=== PATIENT | female | born 1970 | race Caucasian/White ===

== ENCOUNTER 2025-04-13 09:18 | Outpatient (REF) | payer MEDICARE, MEDICAID, SELFPAY ==
--- OUTSIDE RECORDS SUMMARY | 2025-04-08 09:30 | XMS_ITS | Encounter Summary ---
Author Organization [employer] [facility] Address [address] [place] [address] [address] [address] Care Team Providers Care Bronze Plater Name Role Phone Unavailable Primary Care Provider Unavailabl e Reason for Referral * Imaging (Routine) - Authorized Specialty Diagnoses / Procedures Referred By Seoku harper Referred To Contact Radiology Diagnoses Routine general medical examination at a health care facility Procedures BI Mammogram Screening Tomosynthesis Bilateral Dede Humphrey NP [address] [place] [address] Phone: tel: fax: [facility] [address] [place] [id number] Phone: tel: fax: Referral ID Status Reason Start Date Expiration Date V isits Requested Visits Authorized [id number] Authorized 04/08/2025 04/08/2026 1 1 * Consultation (Routine) - Authorized Specialty Diagnoses / Procedures Referred By Sekou harper Referred To Contact Nutrition Diagnoses Type 2 diabetes mellitus with other specified complication, unspecified whether group home insulin use (HCC) Dede Humphrey NP [address] [place] [address] Phone: tel: fax: Referral ID Status Reason Start Date Expiration Date Visits Requested Visits Authorized [id number] Authorized Consult and Treat 04/08/2025 04/08/2026 1 1 * Medications - Closed Specialty Diagnoses / Procedures Referred By Contac t Referred To Contact Diagnoses Type 2 diabetes mellitus with other specified complication, unspecified whether group home insulin use (HCC) Dede Humphrey NP [address] [place] [address] Phone: tel: fax: Referral ID Status Reason Start Date Expiration Date Visits Re quested Visits Authorized [id number] Closed 1 1 * Consultation (Routine) - Authorized Specialty Diagnoses / Procedures Referred By Contac t Referred To Contact Dental Senior Relationship Manager / Dentistry Diagnoses Routine general medical examination at a health care facility Dede Humphrey NP [address] [place] [address] Phone: tel: fax: Referral ID Status Reason Start Date Expiration Date Visits Requested Visits Authorized [id number] Authorized Consult and Treat 04/08/2025 04/08/2026 1 1 * Consultation (Routine) - Closed Specialty Diagnoses / Procedures Referred By Sekou t Referred To Contact Obstetrics and Gynecology Diagnoses Cervical cancer screening Dede Humphrey NP [address] [place], [place] Phone: tel: fax: [facility] [address] [place] [address] [address] Phone: tel: fax: Referral ID Status Reason Start Date Expiration Date V isits Requested Visits Authorized [id number] Closed Specialty Services Required 04/08/2025 04/08/2026 1 1 Reason for Visit * Reason Comments New Pantient Encounter Details Date Type Department Care Team ([facility] st Contact Info) Description 04/08/2025 9:30 AM EST Office Visit [facility] [address] [place] [address] Dede Humphrey NP [address] [place] [address] Routine general medical examination at a health care facility (Primary Dx); Type 2 diabetes mellitus with other specified complication, unspecified whether watermaster insulin use (HCC); Primary hypertension; Neuropathy; Mild intermittent asthma without complication; Other hyperlipidemia; Screening for colon cancer; Dietary counseling; Exercise counseling; Overweight; Gastroesophageal reflux disease with esophagitis without hemorrhage; Cervical cancer screening; Nicotine use; Breast screening; Immunization declined Social History Tobacco Use Types Packs/Day Years Used Date Smoking Tobacco: Every Day Cigarettes Passive Smoke Exposure: Current Smokeless Tobacco: Current Tobacco Cessation:Ready to Q uit: Not Asked; Counseling Given: Not Answered Depression Answer Date Recorded Patient Health Questionnaire-9 Score 3 04/08/2025 Patient Health Questionnaire-9 Score 3 04/08/2025 Last PHQ-9: Questionnaire Data Not on file 1 06/08/2024 Housing Stability Answer Date Recorded What is your housing situation today? I have kishore mccall 04/08/[address] you li ve. Do you have problems with any of the following? None of the above 04/08/2025 Food Insecurity Answer Date Recorded Within the past 12 months, y ou worried that your food would run out before you got money to buy more: Never True 04/08/2025 Within the past 12 months,th e food you bought just didn't last and you didn't have enough money to get more: Never True Transportation Answer Date Recorded In the past 12 months, has l ack of transportation kept you from medical appts, meetings, work or from getting things needed for daily living? No 04/08/2025 Utilities Answer Date Recorded In the past 12 months, has t he electric, gas, oil or water [employer] threatened to shut off services in your home? No 04/08/2025 Depression Answer Date Recorded Patient Health Questionnaire-2 Score 1 04/08/2025 Internet Access Answer Date Recorded Internet Access Q1 Yes 04/08/2025 Internet Access Q2 Not on file 04/08/2025 Comments Unknown Sex and Gender Information Value Date Recorded Sex Assigned at Female 03/26/2025 9:40 AM EST Legal Sex Female 11:35 AM EDT Gender Identity Female 03/26/2025 9:40 AM EST Sexual Orientation Straight 03/26/2025 9: 40 AM EST documented as of this encounter Last Filed Vital Signs Vital Sign Reading Time Taken Comments Blood Pressure 132/80 04/08/2025 10:11 AM EST Pulse 94 04/08/2025 9:08 AM EST Temperature 37.3 C (99.1 F) 04/08/2025 9:08 AM EST Respiratory Rate 18 04/08/2025 9:08 AM EST Oxygen Saturation - - Inhaled Oxygen Concentration - - Weight 68 kg (150 lb) 04/08/2025 9:08 AM EST Height 162.6 cm (5' 4 ) 04/08/2025 9:08 AM EST Body Mass Index 25.75 04/08/2025 9:08 AM EST documented in this encounter Functional Status * Over the past 2 weeks, how often have you been bothered by any of the following problems? Question Answer Date of Assessment Author Patient Health Questionnaire-2 Score 1 03/15 9:10 AM EST Diana Overton [place] * Little interest or pleasure in doing things Answer Date of Assessment Author Not at all 04/08/2025 9:10 AM EST Heydi Overton [place] * Feeling down, depressed, or hopeless Answer Date of Assessment Author Several days 04/08/2025 9:10 AM EST Heydi Overton [place] * Trouble falling or staying asleep, or sleeping too much Answer Date of Assessment Author Several days 04/08/2025 9:10 AM EST Heydi Overton [place] * Feeling tired or having little energy Answer Date of Assessment Author Several days 04/08/2025 9:10 AM EST Heydi Overton [place] * Poor appetite or overeating Answer Date of Assessment Author Not at all 04/08/2025 9:10 AM EST Heydi Overton [place] * Feeling bad about yourself - or that you are a failure or have let yourself or your family down Answer Date of Assessment Author Not at all 04/08/2025 9:10 AM EST Heydi Overton [place] * Trouble concentrating on things, such as reading the newspaper or watching television Answer Date of Assessment Author Not at all 04/08/2025 9:10 AM Heydi Garcia MA * Moving or speaking so slowly that other people could have noticed? Or the opposite - being so fidgety or restless that you have been moving around a lot more than usual. Answer Date of Assessment Author Not at all 04/08/2025 9:10 AM Heydi Garcia [place] * Thoughts that you would be better off or hurting yourself in some way Answer Date of Assessment Author Not at all 04/08/2025 9:10 AM Heydi Garcia MA * Patient Health Questionnaire-9 Score Answer Date of Assessment Author 3 04/08/2025 9:10 AM Heydi Garcia MA * Over the last 2 weeks, how often have you been bothered by any of the following problems? Question Answer Date of Assessment Author Feeling nervous, anxious, or on edge 0 03/15 9:11 AM Diana Garcia MA Not being able to stop or co ntrol worrying 1 04/08/2025 9:11 AM Diana Garcia MA Worrying too much about diff erent things 1 04/08/2025 9:11 AM Diana Garcia MA Trouble relaxing 1 04/08/2025 9:11 AM Diana Magdaleno MA Being so restless that it is hard to sit still 0 04/08/2025 9:11 AM Diana Garcia MA Becoming easily annoyed or irritable 3 03/15 9:11 AM Diana Garcia MA Feeling afraid as if somethi ng awful might happen 0 04/08/2025 9:11 AM Diana Garcia MA JAKE-7 Total Score 6 04/08/2025 9:11 AM Diana Garcia MA * How difficult have these problems made it for you to do your work, take care of things at home, or get along with other people? Answer Date of Assessment Author Not difficult at all 04/08/2025 9:10 AM Diana Garcia MA documented as of this encounter Progress Notes * Sharri Rios NP - 04/08/2025 9:30 AM EST Subjective: Cheryl Colbert is a 55 y.o. female who presents to the office for a new patient visit. Previous PCP REJI JOSE MD Interim history: Type 2 Diabetes Mellitus - History of type 2 diabetes diagnosed at age 44 - Blood glucose levels ranging from 95 to 425 mg/dL, with highest readings during recent move from [place] - Reports episodes of hypoglycemia with symptoms of shakiness and anxiety when blood sugar drops to60-70 mg/dL, managed with orange juice, glucose tablets, or sugar - Prefers to keep blood glucose in the 100s to avoid hypoglycemic symptoms - Reports episodes of hyperglycemia, including nocturnal thirst and increased urination - Admits to frequent consumption of Coca[employer]a, aware it worsens hyperglycemia - Reports inconsistent eating patterns affecting blood glucose control - Previously used a continuous glucose monitor, unable to obtain a new sensor after insurance change - Uses Lantus (27-30 units daily at 8:00 AM) and NovoLog (10 units in the morning, three times daily, sliding scale based on glucose) - Reports weight loss associated with metformin use - Reports fatigue related to diabetes management - No recent endocrinology follow-up since moving Asthma - History of asthma, triggered by weather changes and exposure to strong detergents/chemicals - Uses montelukast 10 mg daily - Uses albuterol inhaler as rescue, last used 2 months ago due to climate change - Previously used Advair (purple discus), currently without supply - No shortness of breath and chest tightness, no need for rescue inhaler, cough, or night time awakening with symptoms in the past wee - Denies recent asthma attacks or hospitalizations- within the past year Hypertension - History of high blood pressure - Takes lisinopril 20 mg - No headaches, dizziness, or shortness of breath, changes in vision. Hyperlipidemia - History of high cholesterol - Takes simvastatin 20 mg daily Gastroesophageal Reflux Disease - Intermittent symptoms of acid reflux with burning sensation in throat and stomach - Uses omeprazole as needed, reports relief with medication - Consuming acidic foods, endorsed mild reduction in caffeine intake; however, continues with tomatoes, spicy food intake Peripheral Neuropathy - History of neuropathy affecting both feet - Uses topical Bengay and neuropathy cream - Continues with gabapentin use, which is effective Osteoporosis - History of osteoporosis - Receives calcium injections to increase calcium levels Vaginal Cancer - Diagnosed with vaginal cancer 4 years ago - Underwent regular gynecologic follow-up every 6 months, all follow-ups negative - Last Pap smear 1 year ago, reported as normal Breast Mass - History of breast mass found 8 years ago - Undergoes annual mammography and sonography due to small, dense breasts Current concerns: Problem List[1] Surgical History[2] Family History[3] Hypertension- mother, paternal grandmother Diabetes- father, paternal aunts, Colon cancer- none FL[facility] SERVICE SPECIALIST cancers- vaginal cancer- 4 years - refer to FLIGHT SERVICE SPECIALIST Breast CA- none Social History Living situation: Daughter Employment/Education: Retired/high school and other training Diet/exercise: diabetic with low sodium diet/ cardio and weight training Substance use: -alcohol- social -tobacco- Cigarettes- 4 per day- 7 years -opioids - none Sexual activity: Contraception: Mental health: Patient Health Questionnaire-9 Score: 3 (04/08/2025 9:10 AM) Patient Health Questionnaire-2 Score: 1 (04/08/2025 9:10 AM) Thoughts that you would be better off or hurting yourself in some way: Not at all (04/08/2025 9:10 AM) JAKE-7 Total Score: 6 (04/08/2025 9:11 AM) Office Visit on 04/08/2025 Component Date Value Ref Range Status Glucose Blood, POC 04/08/2025 272 (A) 60 - 200 mg/dL Final QC Media Lot # 04/08/2025 [id number] Final Lot# Expiration Date 04/08/2025 [id number] Final Hemoglobin A1C 04/08/2025 8.8 (A) 4.0 - 5.7 % Final QC Media Lot # 04/08/2025 [id number] Final Lot# Expiration Date 04/08/2025 [id number] Final No LMP recorded. LMP- 44 years of age; no vaginal symptoms such as bleeding Allergies[4] Review of Systems Constitutional: Negative. Negative for activity change, diaphoresis, fatigue and fever. HENT: Negative for congestion, dental problem, ear discharge, ear pain, rhinorrhea and sinus pain. Missing molars, only lower front teeth are natural - Upper teeth replaced with box denture Eyes: Positive for visual disturbance. Negative for pain and discharge. Respiratory: Negative for cough, chest tightness and wheezing. Gastrointestinal: Negative. Negative for abdominal distention, abdominal pain, constipation, diarrhea, nausea and vomiting. Endocrine: Positive for polydipsia. Negative for cold intolerance, polyphagia and polyuria. Genitourinary: Negative for decreased urine volume, difficulty urinating, dyspareunia, menstrual problem, urgency, vaginal bleeding and vaginal pain. Musculoskeletal: Positive for back pain. Negative for arthralgias, neck pain and neck stiffness. Skin: Negative. Negative for color change and pallor. Allergic/Immunologic: Negative. Negative for environmental allergies and food allergies. Neurological: Positive for headaches. Negative for dizziness. Psychiatric/Behavioral: Negative. Negative for agitation, behavioral problems and decreased concentration. The patient is not nervous/anxious. Vitals: 04/08/25 0908 04/08/25 1011 BP: (!) 130/94 132/80 BP Location: Left arm Left arm Patient Position: Sitting Sitting BP Cuff Size: Adult Pulse: 94 Resp: 18 Temp: 99.1 ??F (37.3 ??C) TempSrc: Oral Weight: 150 lb (68 kg) Height: 5' 4 (1.626 m) Physical Exam Constitutional: General: She is awake. Appearance: Normal appearance. HENT: Head: Normocephalic and atraumatic. Right Ear: Hearing and external ear normal. No drainage or tenderness. There is impacted cerumen. Left Ear: Hearing, tympanic membrane, ear canal and external ear normal. No drainage or tenderness.There is no impacted cerumen. Tympanic membrane is not erythematous. Nose: Nose normal. Mouth/Throat: Lips: Ramer. Mouth: Mucous membranes are moist. Pharynx: Oropharynx is clear. No pharyngeal swelling or posterior oropharyngeal erythema. Tonsils: No tonsillar exudate. Eyes: General: Lids are normal. Lids are everted, no foreign bodies appreciated. No visual field deficit. Right eye: No discharge. Left eye: No discharge. Extraocular Movements: Extraocular movements intact. Right eye: Normal extraocular motion. Left eye: Normal extraocular motion. Conjunctiva/sclera: Conjunctivae normal. Neck: Thyroid: No thyroid mass or thyroid tenderness. Cardiovascular: Rate and Rhythm: Normal rate and regular rhythm. Heart sounds: Normal heart sounds, S1 normal and S2 normal. Pulmonary: Effort: No tachypnea. Breath sounds: Normal breath sounds and air entry. No decreased air movement. Abdominal: General: Abdomen is flat. Bowel sounds are normal. There is no distension. Tenderness: There is no abdominal tenderness. Hernia: No hernia is present. Genitourinary: Vagina: No vaginal discharge. Musculoskeletal: Cervical back: Full passive range of motion without pain. Right lower leg: No edema. Left lower leg: No edema. Feet: Right foot: Skin integrity: Skin integrity normal. No erythema, callus, dry skin or fissure. Toenail Condition: Right toenails are normal. Left foot: Skin integrity: Skin integrity normal. No erythema, callus, dry skin or fissure. Toenail Condition: Left toenails are normal. Comments: Able to sens Lymphadenopathy: Cervical: No cervical adenopathy. Right cervical: No superficial, deep or posterior cervical adenopathy. Left cervical: No superficial, deep or posterior cervical adenopathy. Skin: General: Skin is warm. Capillary Refill: Capillary refill takes less than 2 seconds. Coloration: Skin is not pale. Neurological: Mental Status: She is alert and oriented to person, place, and time. Cranial Nerves: No cranial nerve deficit or facial asymmetry. Gait: Gait is intact. Gait normal. Psychiatric: Attention and Perception: Attention normal. Mood and Affect: Mood normal. Speech: Speech normal. Behavior: Behavior normal. Behavior is cooperative. Assessment & Plan Routine general medical examination at a health care facility Osteoporosis: - Osteoporosis, receiving calcium supplementation via injection. - Will monitor bone health and consider further management as indicated. - Continue with weight bearing exercises, vitamin D supplementation, and calcium Type 2 diabetes mellitus with other specified complication, unspecified whether watermaster insulin use (HCC) - Type 2 diabetes mellitus with episodes of hyperglycemia and hypoglycemia - Prescribed new glucose sensor. - Continued current diabetes medications- Lantus, NovoLog, metformin, and Januvia New sliding scale initiated- - Lantus solostar u-100 insulin 100 unit/ml (3 ml) subcutaneous pen-23 units NovoLog flexpen u-100 insulin aspart 100 unit/ml (3 ml) subcutaneous- sliding scale- 150-199- 2 units 200-249- 4 units 250-300- 6 units 300- 349- 8 units 350- call - 1 week call from nurses to assess the effectiveness of the new changes. Orders: POCT Glucose POCT glycosylated hemoglobin (Hgb A1c) Primary hypertension Managed with Lisinopril Continue with antihypertensive with BP follow-up during the next visit. Neuropathy - Continue with the gabapentin therapy Mild intermittent asthma without complication - Continue with montelukast daily and albuterol inhaler as needed. - Reinforced daily use of controller inhaler. - Advair ordered Other hyperlipidemia - Hyperlipidemia managed with simvastatin. - Continue simvastatin therapy. Monitor lipid profile as indicated. Screening for colon cancer - Due for colon cancer screening. Previous stool test negative two years ago. - Ordered repeat stool-based colon cancer screening kit. Dietary counseling Exercise counseling Overweight Encouraged to incorporate 150 minutes of physical activity Decrease foods high in saturated fats Encouraged to incorporate intake of complex carbohydrates, fiber, and fruits low in glycemic index Gastroesophageal reflux disease with esophagitis without hemorrhage - GERD with intermittent symptoms, previously managed with omeprazole. - Reinforced lifestyle modifications including avoidance of acidic and spicy foods, and upright posture after meals. - Continue omeprazole as needed. Cervical cancer screening Reported history of vaginal cancer. - Will refer to FLIGHT SERVICE SPECIALIST for further care Nicotine use - Current cigarette use. - Discussed smoking history and patterns. - No desire for smoking cessation at this time Breast screening Immunization declined Declined flu, covid immunizations at this time Informed of the availability of these immunizations at the local pharmacy Routine Screening and Health Maintenance Optometry: No- referral Dentist: No Bone density testing- Endorsed she had this test completed by her previous PCP. Will await to review the health records. ASCVD risk: 55 y.o. femalehypertension hyperlipidemia smoker Lab Review: orders written for new lab studies as appropriate; see orders Routine Cancer Screening Breast CA: due for screening- found a mass in her left breast- 8 years ago- Cervical CA: last one- 1 year ago- with normal results per Cheryl Colon CA: never had one before- Lung CA: Current Medications[5] There is no immunization history on file for this patient. Follow up in about 4 weeks (around 05/06/2025), or Schedule a sooner appointment to address the vaginal symptoms, for T2DM, BP, Nurses to call in 1 week with BG findings. . [facility] INFORMATION CLERK CASHIER Attestation INFORMATION CLERK CASHIER Resident Attestation: Patient was seen and evaluated by Sharri FINNEY, in collaboration with Dede Humphrey NP who hasreviewed my assessment and plan. I, Dede Humphrey NP , have reviewed the resident's note and agree with the assessment & plan of care as documented above. Visit Conducted in: Samoan Translation by: Provided by [facility] staff member , CARLEE Soto This note was drafted using Ambient (AI) technology. The patient/patient's guardian has been informed and has consented to the use of this technology: Yes [1] There is no problem list on file for this patient. [2] No past surgical history on file. [3] No family history on file. [4] No Known Allergies [5] Current Outpatient Medications Medication Sig Dispense Refill albuterol 108 (90 Base) MCG/ACT inhaler Inhale 2 puffs every 6 (six) hours if needed for wheezing or shortness of breath. Aspirin Low Dose 81 MG EC tablet Take 1 tablet by mouth Once per day. gabapentin (Neurontin) 300 MG capsule Take 300 mg by mouth at bedtime. Januvia 100 MG tablet Take 100 mg by mouth Once per day. lisinopril 20 MG tablet Take 20 mg by mouth Once per day. metFORMIN XR (Glucophage-XR) 500 MG 24 hr tablet Take 500 mg by mouth with evening meal. montelukast (Singulair) 10 MG tablet Take 10 mg by mouth at bedtime. NovoLOG FLEXPEN 100 UNIT/ML pen Inject under the skin with breakfast, with lunch, and with evening meal. omeprazole (PriLOSEC) [address] capsule Take 40 mg by mouth before breakfast. simvastatin (Zocor) 20 MG tablet Take 20 mg by mouth at bedtime. No current facility-administered medications for this visit. documented in this encounter Plan of Treatment Upcoming Encounters Date Type Department Care Team (Late st Contact Info) Description 04/16/2025 3:00 PM EST Telemedicine [facility] [address] [place] [id number] 05/06/2025 2:00 PM EST Office Visit [facility] [address] [place] [id number] Sharri Rios NP [address] [place] [address] 06/26/2025 2:00 PM EST Nutrition [facility] DIABETES/NUTRITION [address] [place] [id number] Chio Botello, RD [address] [place] [address] Scheduled Orders Name Type Priority Associated Diagnoses Orde r Schedule CBC auto differential Lab Routine Type 2 diabetes mellitus with other specified complication, unspecified whether group home insulin use (HCC) Primary hypertension Expected: 04/08/2025 (Approximate), Expires: 04/08/2026 Comprehensive Metabolic Panel Lab Routine Type 2 diabetes mellitus with other specified complication, unspecified whether watermaster insulin use (HCC) Primary hypertension Expected: 04/08/2025 (Approximate), Expires: 04/08/2026 TSH W/Reflex to FT4 Lab Routine Type 2 diabetes mellitus with other specified complication, unspecified whether group home insulin use (HCC) Primary hypertension Expected: 04/08/2025 (Approximate), Expires: 04/08/2026 Lipid Panel, Standard Lab Routine Other hyperlipidemia Expected: 04/08/2025 (Approximate), Expires: 04/08/2026 Hepatitis A,B,C Profile Lab Routine Routine general medical examination at a health care facility Expected: 04/08/2025, Expires: 04/08/2026 Cologuard colon cancer screening Lab Routine Screening for colon cancer Ordered: 04/08/2025 BI Mammogram Screening Tomosynthesis Bilateral Imaging Routine Routine general medical examination at a health care facility Expected: 04/08/2025, Expires: 06/08/2026 Scheduled Referrals Name Type Priority Associated Diagnoses Orde r Schedule Referral to Obstetrics / Gynecology Outpatient Referral Routine Cervical cancer screening Expected: 04/08/2025 (Approximate), Expires: 04/08/2026 Referral to [facility] Dental Adult Outpatient Referral Routine Routine general medical examination at a health care facility Expected: 04/08/2025 (Approximate), Expires: 04/08/2026 Referral to Nutrition Therapy Outpatient Referral Routine Type 2 diabetes mellitus with other specified complication, unspecified whether group home insulin use (HCC) Expected: 04/08/2025 (Approximate), Expires: 04/08/2026 documented as of this encounter Goals Goal Patient Goal Type Associated Problems Recent Progress Patient-Stated? 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 Care Plan Weekly blood pressure task No Sharri Rios NP documented as of this encounter Procedures Procedure Name Priority Date/Time Associated Diagnosis Comments POCT GLYCOSYLATED HEMOGLOBIN (HGB A1C) Routine 04/08/2025 10:43 AM EST Type 2 diabetes mellitus with other specified complication, unspecified whether group home insulin use (HCC) POCT GLUCOSE Routine 04/08/2025 10:43 AM EST Type 2 diabetes mellitus with other specified complication, unspecified whether watermaster insulin use (HCC) documented in this encounter Results * (ABNORMAL) POCT glycosylated hemoglobin (Hgb A1c) (04/08/2025 10:43 AM EST) Hemoglobin A1C 8.8(A) 4.0 - 5.7 % [facility] [employer] Lot # [id number] [facility] Lot# Expiration Date ,[id number],133 [facility] Blood Capillary blood specimen / Unknown 04/08/2025 10:43 AM EST us Sharri Rios NP POINT OF CARE TEST ENTER/EDIT ORDERABLES Final Result Performing Organization Address City/[facility]/ZIP Co de Phone Number [facility] * (ABNORMAL) POCT Glucose (04/08/2025 10:43 AM EST) Glucose Blood, POC 272(A) 60 - 200 mg/dL [facility] [employer] Lot # [id number] [facility] Lot# Expiration Date [id number] [facility] Blood Capillary blood specimen / Unknown 04/08/2025 10:43 AM EST us Sharri Rios NP POINT OF CARE TEST ENTER/EDIT ORDERABLES Final Result [facility] documented in this encounter Visit Diagnoses Diagnosis Routine general medical examination at a health care facility- Primary Type 2 diabetes mellitus with other specified complication, unspecified whether watermaster insulin use (HCC) Primary hypertension Unspecified essential hypertension Neuropathy Mononeuritis of unspecified site Mild intermittent asthma without complication Other hyperlipidemia Screening for colon cancer Special screening for malignant neoplasms, colon Dietary counseling Dietary surveillance and counseling Exercise counseling Overweight Gastroesophageal reflux disease with esophagitis without hemorrhage Cervical cancer screening Screening for malignant neoplasm of the cervix Nicotine use Breast screening Breast screening, unspecified Immunization declined documented in this encounter Additional Health Concerns Active Problems Noted Date Diagnosed Date Help patients manage their type 2 diabetes 04/08 Patient has chronic kidney disease 04/08/2025 Weekly blood pressure task 04/08/2025 Assessment Noted Time PHQ-9 Depression Total Score: 3 04/08/20 25 9:10 AM EST documented as of this encounter
--- OUTSIDE RECORDS SUMMARY | 2025-04-13 11:04 | XMS_ITS | Encounter Summary ---
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 Phone Unavailable Primary Care Provider Unavailabl e Encounter Details Date Type Department Care Team (Latest Contact Info) Description 04/08/2025 Travel Social History Tobacco Use Types Packs/Day Years Used Date Smoking Tobacco: Every Day Cigarettes Passive Smoke Exposure: Current Smokeless Tobacco: Current Depression Answer Date Recorded Patient Health Questionnaire-9 [...] t he electric, gas, oil or water company threatened to shut off services in your [...] AM EST documented as of this encounter Functional Status * Over the past 2 weeks, how often have you been bothered by any of the following problems? Question Answer Date of Assessment Author Patient Health Questionnaire-2 Score 1 03/15 9:10 AM EST Diana Overton MA * Little interest or pleasure in doing things Answer Date of Assessment Author Not at all 04/08/2025 9:10 AM Heydi Garcia MA * Feeling down, depressed, or hopeless Answer Date of Assessment Author Several days 04/08/2025 9:10 AM Heydi Garcia MA * Trouble falling or staying asleep, or sleeping too much Answer Date of Assessment Author Several days 04/08/2025 9:10 AM EST Heydi Overton MA * Feeling tired or having little energy Answer Date of Assessment Author Several days 04/08/2025 9:10 AM Heydi Garcia MA * Poor appetite or overeating Answer Date of Assessment Author Not at all 04/08/2025 9:10 AM Heydi Garcia MA * Feeling bad about yourself - or that you are a failure or have let yourself or your family down Answer Date of Assessment Author Not at all 04/08/2025 9:10 AM Heydi Garcia MA * Trouble concentrating on things, such [...] Garcia MA documented as of this encounter Plan of Treatment Upcoming Encounters Date Type Department Care Team (Late st Contact Info) Description 04/16/2025 3:00 PM EST Telemedicine [facility] MED[facility]INE [address] [place] [phone] 05/06/2025 2:00 PM EST Office Visit [facility] [address] [place] [phone] Dragan Rios NP [address] [place] [address] 06/26/2025 2:00 PM EST Nutrition [facility] DIABETES/NUTRITION [address] [place], [place] [phone] [place] [address] documented as of this encounter Goals Goal Patient Goal Type Associated Problems Recent Progress Patient-Stated? Author Help patients manage their type 2 diabetes Care Plan Help patients manage their type 2 diabetes No Dragan Rios NP Patient has chronic kidney disease Care Plan Patient has chronic kidney disease No Dragan Rios NP Weekly blood pressure task Care Plan Weekly blood pressure task No Dragan Rios NP documented as of this encounter Visit Diagnoses Not on filedocumented in this encounter Additional Health Concerns Active Problems Noted Date Diagnosed Date Help patients manage their type 2 diabetes 04/08 Patient has chronic kidney disease 04/08/2025 Weekly blood pressure task 04/08/2025 Assessment Noted Time PHQ-9 Depression Total Score: 3 04/08/20 25 9:10 AM EST documented as of this encounter
--- OUTSIDE RECORDS SUMMARY | 2025-04-13 11:04 | XMS_ITS | Clinical Summary ---
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 18 g 3 025 Active Aspirin Low Dose 81 MG EC tabletIndications :Type 2 diabetes mellitus with other specified complication, unspecified whether custodial insulin use (HCC) Take 1 tablet (81 mg) by mouth Once per day. 90 tablet 1 5 9:02 AM EST 025 Active gabapentin (Neurontin) 300 MG capsuleIndication s:Neuropathy Take 1 capsule (300 mg) by mouth at bedtime. 30 capsule 5 9:02 AM EST 025 2024 Active Januvia 100 MG tabletIndications :Type 2 diabetes mellitus with other specified complication, unspecified whether joint terminal attack controller insulin use (HCC) Take 1 tablet (100 mg) by mouth Once per day. 30 tablet 3 5 9:02 AM EST 025 Active lisinopril 20 MG tabletIndications :Primary hypertension Take 1 tablet (20 mg) by mouth Once per day. 30 tablet 3 5 9:02 AM EST 025 Active metFORMIN XR (Glucophage-XR) 500 MG 24 hr tabletIndications :Type 2 diabetes mellitus with other specified complication, unspecified whether custodial insulin use (HCC) Take 1 tablet (500 mg) by mouth with evening meal. 30 tablet 3 5 9:02 AM EST Active montelukast (Singulair) 10 MG tabletIndications :Mild intermittent asthma without complication Take 1 tablet (10 mg) by mouth at bedtime. 30 tablet 3 5 9:02 AM EST Active omeprazole (PriLOSEC) [address] capsuleIndication s:Gastroesophagea l reflux disease with esophagitis without hemorrhage Take 1 capsule (40 mg) by mouth before breakfast. 30 capsule 2 5 9:02 AM EST Active simvastatin (Zocor) 20 MG tabletIndications :Other hyperlipidemia Take 1 tablet (20 mg) by mouth at bedtime. 30 tablet 3 5 9:02 AM EST Active fluticasone (Flovent) 220 MCG/ACT inhalerIndication s:Mild intermittent asthma without complication Inhale 1 puff in the morning and at bedtime. Rinse mouth with water after use to reduce aftertaste and incidence of candidiasis. Do not swallow. 12 g 11 5 9:02 AM EST 2025 Active insulin pen needle (Ultra Alex Insulin Pen [place]) 32G x 4 mm miscIndications:T ype 2 diabetes mellitus with other specified complication, unspecified whether joint terminal attack controller insulin use (HCC) Use as instructed 100 each 12 025 2025 Active insulin glargine (Lantus) 100 UNIT/ML injectionIndicati ons:Type 2 diabetes mellitus with other specified complication, unspecified whether joint terminal attack controller insulin use (HCC) Inject 23 Units under the skin at bedtime. 10 mL 12 025 2024 Active NovoLOG FLEXPEN 100 UNIT/ML penIndications:Ty pe 2 diabetes mellitus with other specified complication, unspecified whether joint terminal attack controller insulin use (HCC) Check BG three times per day: 150-199- 2 units 200-249- 4 units 250-300- 6 units 300- 349- 8 units 350- call the office 10 mL 3 Active Continuous Glucose Packager And Strapper (Dexcom G7 Packager And Strapper) deviceIndications :Type 2 diabetes mellitus with other specified complication, unspecified whether custodial insulin use (HCC) 1 each Once per day for 1 day. 1 each 2024 albuterol 108 (90 Base) MCG/ACT inhaler Inhale 2 puffs every 6 (six) hours if needed for wheezing or shortness of breath. 2024 Discontinued(R eorder (will not trigger notification to Pharmacy)) Aspirin Low Dose 81 MG EC tablet Take 1 tablet by mouth Once per day. 2024 Discontinued(R eorder (will not trigger notification to Pharmacy)) gabapentin (Neurontin) 300 MG capsule Take 300 mg by mouth at bedtime. 2024 Discontinued(R eorder (will not trigger notification to Pharmacy)) NovoLOG FLEXPEN 100 UNIT/ML pen Inject under the skin with breakfast, with lunch, and with evening meal. 2024 Discontinued(R eorder (will not trigger notification to Pharmacy)) Lantus SoloStar 100 UNIT/ML pen Inject 30 Units under the skin Once per day. 2024 Discontinued(D ose adjustment) lisinopril 20 MG tablet Take 20 mg by mouth Once per day. 2024 Discontinued(R eorder (will not trigger notification to Pharmacy)) metFORMIN XR (Glucophage-XR) 500 MG 24 hr tablet Take 500 mg by mouth with evening meal. 2024 Discontinued(R eorder (will not trigger notification to Pharmacy)) montelukast (Singulair) 10 MG tablet Take 10 mg by mouth at bedtime. 2024 Discontinued(R eorder (will not trigger notification to Pharmacy)) omeprazole (PriLOSEC) [address] capsule Take 40 mg by mouth before breakfast. 2024 Discontinued(R eorder (will not trigger notification to Pharmacy)) simvastatin (Zocor) 20 MG tablet Take 20 mg by mouth at bedtime. 2024 Discontinued(R eorder (will not trigger notification to Pharmacy)) Januvia 100 MG tablet Take 100 mg by mouth Once per day. 025 2024 Discontinued(R eorder (will not trigger notification to Pharmacy)) terconazole (Terazol 7) 0.4 % vaginal cream Insert 1 applicator into the vagina at bedtime. 025 2024 Discontinued(T herapy completed) Encounters Date Type Department Care Team Description 04/13/2025 Telephone [facility] [address] [place] [phone] Dragan Rios NP Med Refill (Pt stated pcp didn't send refills for Censor dextrom 67 and Insulin novalog 100 pt stated shew needs medications ) 04/08/2025 9:30 AM EST Office Visit [address] [phone] Dede Humphrey NP Routine general medical examination at a health care facility (Primary Dx); Type 2 diabetes mellitus with other specified complication, unspecified whether joint terminal attack controller insulin use (HCC); Primary hypertension; Neuropathy; Mild intermittent asthma without complication; Other hyperlipidemia; Screening for colon cancer; Dietary counseling; Exercise counseling; Overweight; Gastroesophageal reflux disease with esophagitis without hemorrhage; Cervical cancer screening; Nicotine use; Breast screening; Immunization declined 04/08/2025 Travel 04/02/2025 Travel 03/05/2025 Telephone [facility] [address] [place], [place] [phone] Brandon Cavazos MD telephone call from Last 3 Months Social History Tobacco Use Types Packs/Day Years [...] Orientation Straight 03/26/2025 9: 40 AM EST Last Filed Vital Signs Vital Sign Reading [...] Mass Index 25.75 04/08/2025 9:08 AM EST Plan of Treatment Upcoming Encounters Date Type Department Care Team (Late st Contact Info) Description 04/16/2025 3:00 PM EST Telemedicine [facility] MEDICINE [address] [place] [phone] 05/06/2025 2:00 PM EST Office Visit [facility] MEDICINE [address] [place] [phone] Dragan Rios NP [address] [place] [phone] 06/26/2025 2:00 PM EST Nutrition [facility] DIABETES/NUTRITION [address] [place] [address] Chio Botello, RD [address] [place] [address] Health Maintenance Due Date Last Done Comments CT Colonography 1969 Colonoscopy 1969 Colorectal Cancer Screening 1969 FIT DNA/Cologuard 1969 FIT 1969 FOBT 1969 HIV Screening 1969 Lipid Panel 1969 Sigmoidoscopy 1969 Eye Exam 1979 Hepatitis C Screening 1987 DTaP/Tdap/Td Vaccines (1 - Tdap) 01/11/1988 Diabetes: Urine Protein Screening 01/11/1988 Hepatitis B Vaccines (1 of 3 - 19+ 3-dose series) 01/11/1988 Pneumococcal Vaccine: 50+ Years (1 of 2 - PCV) 01/11/1988 Pap Smear 1990 Cervical Cancer Screening 1999 HPV/Cotest 1999 Mammogram 2009 RSV Patients and Patients Aged 60 years or older (1 - Risk 50-74 years 1-dose series) 2019 Zoster Vaccines (1 of 2) 2019 COVID-19 Vaccine (1 - season) 2025 Influenza Vaccine (#1) 2025 Diabetes: Hemoglobin A1C 07/09/2025 04/08/2025 Alcohol/Substance Use Screening 04/08/2026 04/08/2025 Depression Screening 04/08/2026 04/08/2025, 04/08/20 Diabetes: Foot Exam 04/08/2026 04/08/2025, 04/08/2025, 04/08/2025, Additional history exists Disability Screening 04/08/2026 04/08/2025 SDOH Screening 04/08/2026 04/08/2025 Tobacco Screening 04/08/2026 04/08/2025 HIB Vaccines Aged Out No longer eligi ble based on patient's age to complete this topic HPV Vaccines Aged Out No longer eligi ble based on patient's age to complete this topic Hepatitis A Vaccines Aged Out No long er eligible based on patient's age to complete this topic IPV Vaccines Aged Out No longer eligi ble based on patient's age to complete this topic Meningococcal B Vaccine Aged Out No l onger eligible based on patient's age to complete this topic Meningococcal Vaccine Aged Out No mike aleta eligible based on patient's age to complete this topic RSV under 20 months Aged Out No longe r eligible based on patient's age to complete this topic Rotavirus Vaccines Aged Out No longer eligible based on patient's age to complete this topic Goals Goal Patient Goal Type Associated Problems Recent Progress Patient-Stated? Author Help patients manage their type 2 diabetes Care Plan Help patients manage their type 2 diabetes Dragan Garsia NP Patient has chronic kidney disease Care Plan Patient has chronic kidney disease Dragan Garsia NP Weekly blood pressure task Care Plan Weekly blood pressure task Dragan Garsia NP Procedures Procedure Name Priority Date/Time Associated Diagnosis Comments POCT GLYCOSYLATED HEMOGLOBIN (HGB A1C) Routine 04/08/2025 10:43 AM EST Type 2 diabetes mellitus with other specified complication, unspecified whether custodial insulin use (HCC) POCT GLUCOSE Routine 04/08/2025 10:43 AM EST Type 2 diabetes mellitus with other specified complication, unspecified whether custodial insulin use (HCC) from Last 3 Months Results * (ABNORMAL) POCT glycosylated hemoglobin (Hgb A1c) (04/08/2025 10:43 AM EST) Hemoglobin A1C 8.8(A) 4.0 - 5.7 % [facility] [employer] Lot # [id number] [facility] Lot# Expiration Date 114, [facility] Blood Capillary blood specimen / Unknown 04/08/2025 10:43 AM EST Dragan Rios NP POINT OF CARE TEST ENTER/EDIT ORDERABLES Final Result [facility] * (ABNORMAL) POCT Glucose (04/08/2025 10:43 AM EST) Glucose Blood, POC 272(A) 60 - 200 mg/dL [facility] [employer] Lot # [id number] [facility] Lot# Expiration Date [facility] Blood Capillary blood specimen / Unknown 04/08/2025 10:43 AM EST Dragan Rios NP POINT OF CARE TEST ENTER/EDIT ORDERABLES Final Result [facility] from Last 3 Months Additional Health Concerns Active Problems Noted Date Diagnosed Date Help patients manage their type 2 diabetes 04/08 Patient has chronic kidney disease 04/08/2025 Weekly blood pressure task 04/08/2025 Insurance [employer] MEDICARE REPLACEMENT
--- OUTSIDE RECORDS SUMMARY | 2025-04-13 11:04 | XMS_ITS | Encounter Summary ---
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 Role Phone Unavailable Primary Care Provider Unavailabl e Reason for Visit * Reason Onset Date Comments Med Refill 04/13/2025 Pt stated pcp di dn't send refills for Censor dextrom 67 and Insulin novalog 100 pt stated shew needs medications Encounter Details Date Type Department Care Team ([facility] st Contact Info) Description 04/13/2025 Telephone [facility] [address] [place] [address] Dragan Rios NP [address] [place] [address] Med Refill (Pt stated pcp didn't send refills for Censor dextrom 67 and Insulin novalog 100 pt stated shew needs medications ) Social History Tobacco Use Types Packs/Day Years [...] AM EST documented as of this encounter Miscellaneous Notes * Telephone Encounter - Thu Leos - 04/13/2025 9:07 AM EST Pt stated pcp didn't send refills for Censor dextrom 67 and Insulin novalog 100 pt stated shew needs medications documented in this encounter Plan of Treatment Upcoming Encounters Date Type Department Care Team (Late st Contact Info) Description 04/16/2025 3:00 PM EST Telemedicine [facility] [address] [place] [phone] 05/06/2025 2:00 PM EST Office Visit [facility] [address] [place] [phone] Dragan Rios NP [address] [place] [address] 06/26/2025 2:00 PM EST Nutrition [facility] DIABETES/NUTRITION [address] [place] [phone] [place] [address] documented as of this encounter Goals Goal [...]
[2025-04-13 11:12] LABS: MANUAL DIFF FLAG NO
[2025-04-13 11:30] LABS: Hematocrit 41.1 % (37.0-47.0); Hemoglobin 13.9 g/dl (12.0-16.0); Imm Gran Abs Auto 0.03 X10*3/uL (0.00-0.03); Imm Gran Pct Auto 0.4 % (0.0-0.4); Lymphocytes Absolute Auto 2.2 X10*3/uL (1.2-4.9); Mean Corpuscular HGB Conc 33.8 g/dl (31.0-35.0); Mean Corpuscular Hemoglobin 30.6 pg (27.0-33.0); Mean Corpuscular Volume 90.5 fL (80.0-98.0); NRBC Abs Auto 0.000 X10*3/uL (0.0-0.012); NRBC Pct Auto 0.0 /100WBC (0.0-0.2); Platelet Count 205 X10*3/uL (160-400); Red Blood Count 4.54 X10*6/uL (4.20-5.50); White Blood Count 7.3 X10*3/uL (4.8-10.8)
[2025-04-13 12:32] LABS: Alanine Aminotransferase 12 U/L (0-31); Albumin Level 4.3 g/dL (3.5-5.0); Alkaline Phosphatase 67 U/L (39-117); Anion Gap 10 (12-20); Aspartate Amino Transferase 21 U/L (5-31); Blood Urea Nitrogen 13 mg/dL (9-16); Calcium 9.3 mg/dL (8.4-10.2); Carbon Dioxide 28 mmol/L (22-29); Chloride 106 mmol/L (96-108); Cholesterol 179 mg/dL (<200); Estimated Glomerular Filt Rate > 60; HDL Cholesterol 62 mg/dL (>40); Potassium 4.0 mmol/L (3.3-5.1); Sodium 140 mmol/L (135-145); Total Protein 6.8 g/dL (6.5-8.0); Triglycerides 66 mg/dL (<150)
[2025-04-13 12:44] LABS: HBS Num1 6.09 mIU/mL (0-7.99); HBc Num1 0.07 S/CO (0.00-0.79); HBsAGNum1 0.34 S/CO (0.00-0.99); Hepatitis A Antibody IgM 0.18 Index (0-0.79); Hepatitis B Surface Antigen Negative (Negative); ~HepC Num1 0.11 S/CO (0.00-0.79); ~Hepatitis A Antibody IgM Nonreactive (Nonreactive); ~Hepatitis B Surface Antibody NONREACTIVE (Nonreactive); ~Hepatitis C Antibody Nonreactive (Nonreactive)
== END 2025-04-13 09:19 | disposition home or self-care (01) ==
LOC: HO.HHCL 09:18
PROVIDERS: PCP Nurse Practitioner Family; Visit Provider Nurse Practitioner Family
DX: Z00.00 Encounter for general adult medical examination without abnormal findings (principal); I10 Essential (primary) hypertension; E11.69 Type 2 diabetes mellitus with other specified complication; E78.49 Other hyperlipidemia
CPT/HCPCS: 36415; 80053; 80061; 84443; 85025; 86704; 86706; 86709; 86803; 87340

== ENCOUNTER 2025-04-23 13:39 | Outpatient (REF) | payer MEDICARE, MEDICAID, SELFPAY ==
--- OUTSIDE RECORDS SUMMARY | 2025-04-23 11:15 | XMS_ITS | Encounter Summary ---
Author Organization [employer] Address [address] [facility] 7 [place] [address] Care Team Providers Care Minister Name Role Phone Dede Humphrey NP Primary Care Provider Encounter Details Date Type Department Care Team ([facility] st Contact Info) Description 04/23/2025 11:15 AM EST Office Visit [facility] MEDICINE [address] [place] [address] Carolyn Ojeda MD [address] [place] [address] Bacterial vaginosis (Primary Dx); Vulvovaginal candidiasis Social History Tobacco Use Types Packs/Day Years [...] Sign Reading Time Taken Comments Blood Pressure 134/70 04/23/2025 10:57 AM EST Pulse 98 04/23/2025 10:57 AM EST Temperature 36.2 C (97.1 F) 04/23/2025 10:57 AM EST Respiratory Rate 20 04/23/2025 10:57 AM EST Oxygen Saturation - - Inhaled Oxygen Concentration - - Weight 70.1 kg (154 lb 9.6 oz) 04/23/2025 10:57 AM EST Height 162.6 cm (5' 4 ) 04/23/2025 10:57 AM EST Body Mass Index 26.54 04/23/2025 10:57 AM EST documented in this encounter Progress Notes * Carolyn Aquino MD - 04/23/2025 11:15 AM EST Subjective Patient ID: Cheryl Colbert is a 55 y.o. female who presents for Sick visit HPI 55 y o F w PMX of DM -insulin dependent, hypertension,HLD,Asthma,GERD,Osteoporosis ,cervical cancerper pt w current normal pap smear a year ago Comes for a sick visit Reports Vulvar pruritus and discharge - Pruritus localized to the clitoral area, described as itching only externally, not inside the vagina - White, cheese-like discharge noted on the vulva as well scant amount from vagina - Mild burning sensation at the end of urination -describes mild SP discomfort as mild pressure associated - Denies burning from inside the urethra during urination - Denies increased urinary frequency or urgency - Denies malodor or blood in urine - Symptoms present for approximately one week - Reports similar episodes in the past, previously treated with topical clotrimazole prescribed by hose turner - Last gynecological evaluation one year ago, reported as normal - No recent new medications or changes in medication - History of diabetes from last labs not controlled , following already w new PCP ----- -Menopause : 44 y of age Allergies[1] Review of Systems -vulvar -clitoris itching -mild dysuria -mild SP discomfort Objective BP 134/70 (BP Location: Left arm, Patient Position: Sitting, BP Cuff Size: Adult) Pulse 98 Temp97.1 ??F (36.2 ??C) (Temporal) Resp 20 Ht 5' 4 (1.626 m) Wt 154 lb 9.6 oz (70.1 kg) BMI 26.54 kg/m?? Physical Exam There is mild irritation around clitoris with scant cheesy discharge ,rest of vulva inspection seems normal, no CMT , no obvious vaginal discharge noted , mild SP discomfort w palpation Assessment/Plan Problem List Items Addressed This Visit Vulvovaginal candidiasis Likely Vulvovaginal candidiasis from symptoms and findings on exam - Today Urinalysis: positive glucose 500 ; negative bilirubin; negative ketones; negative blood; protein 30 mg/dL; negative nitrites; negative leukocyte esterase -Chem 04/2025 wnl -sent today UA w reflex to culture and BV panel -will inform results to pt -Prescribed fluconazole (Diflucan) 150 mg single oral dose for antifungal treatment. -Recommended improved glycemic control to reduce risk of recurrent infections. Advised to follow upwith primary care physician for diabetes management. -alarm signs and symptoms discussed Other Visit Diagnoses Bacterial vaginosis - Primary Relevant Orders POCT Urinalysis (Completed) Bacterial Vaginosis Urinalysis, Complete, with Reflex to Culture [1] Allergies Allergen Reactions Benadryl [Diphenhydramine] Penicillins Tussin [Guaifenesin] Cefazolin Rash documented in this encounter Miscellaneous Notes * Assessment & Plan Note - Carolyn Aquino MD - 04/23/2025 11:32 AM ESTAssociated Problem(s): Vulvovaginal candidiasis Likely Vulvovaginal candidiasis from symptoms and findings on exam - Today Urinalysis: positive glucose 500 ; negative bilirubin; negative ketones; negative blood; protein 30 mg/dL; negative nitrites; negative leukocyte esterase -Chem 04/2025 wnl -sent today UA w reflex to culture and BV panel -will inform results to pt -Prescribed fluconazole (Diflucan) 150 mg single oral dose for antifungal treatment. -Recommended improved glycemic control to reduce risk of recurrent infections. Advised to follow upwith primary care physician for diabetes management. -alarm signs and symptoms discussed documented in this encounter Plan of Treatment Upcoming Encounters Date Type Department Care Team (Late st Contact Info) Description 05/06/2025 2:00 PM EST Office Visit [facility] MEDICINE [address] [place] [address] Dragan Rios NP [address] [place] [address] 06/26/2025 2:00 PM EST Nutrition [facility] DIABETES/NUTRITION [address] [place] [address] [place] [address] Scheduled Orders Name Type Priority Associated Diagnoses Orde r Schedule Bacterial Vaginosis Microbiology Routine Bacterial vaginosis Expected: 04/23/2025 (Approximate), Expires: 04/23/2026 documented as of this encounter Goals Goal [...] blood pressure task No Dragan Rios NP Weekly blood pressure task Care Plan Weekly blood pressure task No Genesis Walker, RN Patient has chronic kidney disease Care Plan Patient has chronic kidney disease No Denise, Genesis, RN documented as of this encounter Procedures Procedure Name Priority Date/Time Associated Diagnosis Comments POCT URINALYSIS DIPSTICK Routine 04/23/2025 11:21 AM EST Bacterial vaginosis URINALYSIS, COMPLETE, WITH REFLEX TO CULTURE Routine 04/23/2025 10:57 AM EST Bacterial vaginosis documented in this encounter Results * POCT Urinalysis (04/23/2025 11:21 AM EST) Color, UA Yellow Clarity, UA Clear Glucose, UA 3+ 500+++ Comment:500 mg Bilirubin, UA Negative Ketones, UA Negative Spec Grav, UA 1.030 Blood, UA Negative Negative, None Detected pH, UA 6.0 Protein, UA Trace Comment:30 mg Urobilinogen, UA 0.2 Leukocytes, UA Negative Negative, Rare, Trace, 1+ (17), 2+ (35), 3+ (70), Trace (15) Nitrite, UA Negative Negative, None Detected QC Media Lot # [id number] Lot# Expiration Date Urine (Urine, Random) 04/23/2025 11:21 AM EST Carolyn Aquino MD POINT OF CARE ALCIDES T ENTER/EDIT ORDERABLES Final Result * (ABNORMAL) Urinalysis, Complete, with Reflex to Culture (04/23/2025 10:57 AM EST) Color Urine Yellow [facility] Appearance Urine Clear [facility] PH 5.0 5.0 - 9.0 [facility] Glucose Urine UA >=1000(A) Negative mg/dL [facility] Urine Blood Negative Negative [facility] Specific [place] - Urine >=1.030(H) 1.005 - 1.025 [facility] Urine Protein Trace Neg-Trace mg/dL [facility] Urine Ketones Trace Negative mg/dL [facility] Nitrite Urine Negative Negative [facility] Leukocyte Esterase Urine Negative Negative [facility] RBC Urine 0-2 0 - 2 /HPF [facility] Urine WBC 0-5 0 - 5 /HPF [facility] Urine Squamous Epithelial Cell 3-5 0 - 2 /HPF [facility] Urine Bacteria None Seen None Seen [facility] Hyaline Casts, Urine 0-2 0 - 2 /LPF [facility] Urine 04/23/2025 10:5 7 AM EST 04/23/2025 1:40 PM EST Narrative [facility] - 04/23/2025 2:14 PM EST Urine, Clean Catch us Carolyn Aquino MD LAB URINE ORDERAB LES Final Result [facility] [address] [place] [phone] documented in this encounter Visit Diagnoses Diagnosis Bacterial vaginosis- Primary Unspecified vaginitis and vulvovaginitis Vulvovaginal candidiasis documented in this encounter Additional Health Concerns Active Problems Noted Date Diagnosed Date Help patients manage their type 2 diabetes 04/08 Patient has chronic kidney disease 04/08/2025 Weekly blood pressure task 04/08/2025 Weekly blood pressure task 04/14/2025 Patient has chronic kidney disease 04/14/2025 Assessment Noted Time PHQ-9 Depression Total Score: 3 04/08/20 25 9:10 AM EST documented as of this encounter Care Teams Minister Relationship Specialty Start Date End Date Dede Humphrey NP [address] [place] [phone] PCP - General Family Medicine 04/23/25 documented as of this encounter
[2025-04-23 14:04] LABS: Appearance Urine Clear; Glucose Urine UA >=1000 mg/dL (Negative); PH 5.0 (5.0-9.0); Specific Gravity - Urine >= 1.030 (1.005-1.025); UMIC TRIGGER UACC YES
[2025-04-23 15:40] LABS: Bacterial Vaginosis PCR NEGATIVE (Negative); Candida Group PCR DETECTED (Not Detect); Candida glab krusei PCR NOT DETECTED (Not Detect); Trichomonas vaginalis PCR NOT DETECTED (Not Detect)
--- OUTSIDE RECORDS SUMMARY | 2025-04-23 20:54 | XMS_ITS | Encounter Summary ---
Author Organization [employer] Address [address] [facility] [address] [place] [address] Care Team Providers Care Administrative Representative Name Role Phone Dede Humphrey NP Primary Care Provider [phone] Encounter Details Date Type Department Care Team ([facility] Contact Info) Description 04/23/2025 Results Follow-Up [facility] MEDICINE [address] [place] [address] Carolyn Ojeda MD [address] [place] [address] Bacterial Vaginosis Social History Tobacco Use Types Packs/Day Years [...] AM EST documented as of this encounter Plan of Treatment Upcoming Encounters Date Type Department Care Team (Late st Contact Info) Description 05/06/2025 2:00 PM EST Office Visit [facility] MEDICINE [address] [place] [phone] Dragan Rios NP [address] [place] [phone] 06/26/2025 2:00 PM EST Nutrition [facility] DIABETES/NUTRITION [address] [place] [phone] [place] [phone] documented as of this encounter Goals Goal [...] Weekly blood pressure task No Genesis Walker, TAMMY Patient has chronic kidney disease Care Plan Patient has chronic kidney disease Genesis Nieto, RN documented as of this encounter Visit Diagnoses [...] documented as of this encounter Care Teams Administrative Representative Relationship Specialty Start Date End Date Dede Humphrey NP [address] [place] [address] PCP - General Family Medicine 04/23/25 documented as of this encounter
--- OUTSIDE RECORDS SUMMARY | 2025-04-23 20:54 | XMS_ITS | Clinical Summary ---
Author Organization [employer] Address [address] [facility] 7[address] [place] [address] Care Team Providers Care Granite Installer Name Role Phone Dede Humphrey NP Primary Care Provider Allergies Active Allergy Reactions Criticality Noted Date Comments Diphenhydramine 04/23/2025 Cefazolin Rash Low 04/23/2025 Penicillins 04/23/2025 Guaifenesin 04/23/2025 Medications albuterol 108 (90 Base) MCG/ACT inhalerIndication s:Mild intermittent asthma without complication Inhale 2 puffs every 6 (six) hours if needed for wheezing or shortness of breath. 18 g 3 5 2:43 PM EST 025 Active Aspirin Low Dose 81 MG EC tabletIndications :Type 2 diabetes mellitus with other specified complication, unspecified whether group home insulin use (HCC) Take 1 tablet (81 mg) by mouth Once per day. 90 tablet 1 5 9:02 AM EST 025 Active gabapentin (Neurontin) 300 MG capsuleIndication s:Neuropathy Take 1 capsule (300 mg) by mouth at bedtime. 30 capsule 5 9:02 AM EST 025 2024 Active Januvia 100 MG tabletIndications :Type 2 diabetes mellitus with other specified complication, unspecified whether intermediate project manager insulin use (HCC) Take 1 tablet (100 mg) by mouth Once per day. 30 tablet 3 5 9:02 AM EST 025 Active metFORMIN XR (Glucophage-XR) 500 MG 24 hr tabletIndications :Type 2 diabetes mellitus with other specified complication, unspecified whether intermediate project manager insulin use (HCC) Take 1 tablet (500 [...] insulin pen needle (Ultra Alex Insulin Pen [place]) 32G x 4 mm miscIndications:T ype 2 diabetes mellitus with other specified complication, unspecified whether group home insulin use (HCC) Use as instructed 100 each 12 5 2:43 PM EST 2025 Active insulin glargine (Lantus) 100 UNIT/ML injectionIndicati ons:Type 2 diabetes mellitus with other specified complication, unspecified whether group home insulin use (HCC) Inject 23 Units under the skin at bedtime. 10 mL 12 025 2024 Active NovoLOG FLEXPEN 100 UNIT/ML penIndications:Ty pe 2 diabetes mellitus with other specified complication, unspecified whether group home insulin use (HCC) Check BG three times per day: 150-199- 2 units 200-249- 4 units 250-300- 6 units 300- 349- 8 units 350- call the office 10 mL 3 5 2:43 PM EST Active lisinopril 40 MG tabletIndications :Primary hypertension Take 1 tablet (40 mg) by mouth Once per day. 90 tablet 5 10:09 AM EST Active fluconazole (Diflucan) 150 MG tablet Take 1 tablet (150 mg) by mouth Once per day for 1 day. 1 tablet 2024 Active Continuous Glucose Drapery Maker (Dexcom G7 Drapery Maker) deviceIndications :Type 2 diabetes mellitus with other specified complication, unspecified whether group home insulin use (HCC) 1 each Once per [...] 100 mg by mouth Once per day. 2024 Discontinued(R eorder (will not trigger notification to Pharmacy)) terconazole (Terazol 7) 0.4 % vaginal cream Insert 1 applicator into the vagina at bedtime. 2024 Discontinued(T herapy completed) lisinopril 20 MG tabletIndications :Primary hypertension Take 1 tablet (20 mg) by mouth Once per day. 30 tablet 3 9:02 AM EST 2024 Discontinued(D ose adjustment) NovoLOG FLEXPEN 100 UNIT/ML penIndications:Ty pe 2 diabetes mellitus with other specified complication, unspecified whether intermediate project manager insulin use (HCC) Check BG three times per day: 150-199- 2 units 200-249- 4 units 250-300- 6 units 300- 349- 8 units 350- call the office 10 mL 3 2024 Discontinued(R eorder (will not trigger notification to Pharmacy)) lisinopril 40 MG tabletIndications :Primary hypertension Take 1 tablet (40 mg) by mouth Once per day. 30 tablet 11 2024 Discontinued(T herapy completed) Active Problems Problem Noted Date Diagnosed Date Vulvovaginal candidiasis 04/23/2025 Assessment & Plan (04/23/2025 11:32 AM EST): Likely Vulvovaginal candidiasis from symptoms and findings [...] risk of recurrent infections. Advised to follow up with primary care physician for diabetes management. -alarm signs and symptoms discussed Encounters Date Type Department Care Team Description 04/23/2025 11:15 AM EST Office Visit [address] [address] Carolyn Ojeda MD Bacterial vaginosis (Primary Dx); Vulvovaginal candidiasis 04/23/2025 Results Follow-Up [address] [address] Carolyn Ojeda MD Bacterial Vaginosis 04/23/2025 Orders Only [address] [address] Carolyn Ojeda MD 04/23/2025 Travel 04/22/2025 Telephone [facility] [address] [place] [phone] Dede Humphrey NP 04/20/[address] [address] Dragan Rios NP Telephone Call 04/16/2025 3:00 PM EST Telemedicine [address] [address] Genesis Walker RN Primary hypertension 04/16/2025 Travel 04/15/[address] [address] Dragan Rios NP Blood Glucose Check 04/13/[address] [address] Dragan Rios NP Type 2 diabetes mellitus with other specified complication, unspecified whether group home insulin use (HCC) 04/08/2025 9:30 AM EST Office Visit [address] [address] Dede Humphrey NP Routine general medical examination at a health care facility (Primary Dx); Type 2 diabetes mellitus with other specified complication, unspecified whether intermediate project manager insulin use (HCC); Primary hypertension; Neuropathy; Mild intermittent asthma without complication; Other hyperlipidemia; Screening for colon cancer; Dietary counseling; Exercise counseling; Overweight; Gastroesophageal reflux disease with esophagitis without hemorrhage; Cervical cancer screening; Nicotine use; Breast screening; Immunization declined 04/08/2025 Travel 04/02/2025 Travel 03/05/[address] [facility] [address] [place] [phone] Brandon Cavazos MD telephone call from Last [...] Mass Index 26.54 04/23/2025 10:57 AM EST Plan of Treatment Upcoming Encounters Date Type Department Care Team (Late st Contact Info) Description 05/06/2025 2:00 PM EST Office Visit [facility] [address] [place] [phone] Dragan Rios NP [address] [place] [address] 06/26/2025 2:[address] [facility] DI[facility]ET[facility]/NUTRITION [address] [place] [phone] [place] [address] Health Maintenance Due Date Last Done Comments CT Colonography 1969 Colonoscopy 1969 Colorectal Cancer Screening 1969 FIT DNA/Cologuard 1969 FIT 1969 FOBT 1969 HIV Screening 1969 Sigmoidoscopy 1969 Eye Exam 1979 DTaP/Tdap/Td Vaccines (1 - Tdap) 01/11/1988 Diabetes: [...] of 2) 2019 COVID-19 Vaccine (1 - 2024- season) 2025 Influenza Vaccine (#1) 2025 Diabetes: Hemoglobin A1C 07/09/2025 04/08/2025 Alcohol/Substance Use Screening 04/08/2026 04/08/2025 Depression Screening 04/08/2026 04/08/2025, 04/08/20 Diabetes: Foot Exam 04/08/2026 04/08/2025, 04/08/2025, 04/08/2025, Additional history exists Disability Screening 04/08/2026 04/08/2025 SDOH Screening 04/08/2026 04/08/2025 Lipid Panel 04/13/2026 04/13/2025 Tobacco Screening 04/23/2026 04/23/2025 Hepatitis C Screening Completed 04/13/2025 HIB Vaccines Aged Out No longer eligi [...] Plan Weekly blood pressure task No Dragan iRos NP Weekly blood pressure task Care Plan Weekly blood pressure task No Genesis Walker TAMMY Patient has chronic kidney disease Care Plan Patient has chronic kidney disease No Genesis Walker, lockstitch zipper setter Procedure Name Priority Date/Time Associated Diagnosis Comments BACTERIAL VAGINOSIS PANEL Routine 04/23/2025 11:25 AM EST POCT URINALYSIS DIPSTICK Routine 04/23/2025 11:21 AM EST Bacterial vaginosis URINALYSIS, COMPLETE, WITH REFLEX TO CULTURE Routine 04/23/2025 10:57 AM EST Bacterial vaginosis HEPATITIS PANEL, GENERAL Routine 04/13/2025 9:31 AM EST Routine general medical examination at a [facility] facility LIPID PANEL, STANDARD Routine 04/13/2025 9:31 AM EST Other hyperlipidemia TSH W/REFLEX TO FT4 Routine 04/13/2025 9 :31 AM EST Type 2 diabetes mellitus with other specified complication, unspecified whether group home insulin use (HCC) Primary hypertension COMPREHENSIVE METABOLIC PANEL Routine 04/13/2025 9:31 AM EST Type 2 diabetes mellitus with other specified complication, unspecified whether intermediate project manager insulin use (HCC) Primary hypertension CBC WITH AUTO DIFFERENTIAL Routine 04/13/2025 9:31 AM EST Type 2 diabetes mellitus with other specified complication, unspecified whether group home insulin use (HCC) Primary hypertension POCT GLYCOSYLATED HEMOGLOBIN (HGB A1C) Routine 04/08/2025 10:43 AM EST Type 2 diabetes mellitus with other specified complication, unspecified whether intermediate project manager insulin use (HCC) POCT GLUCOSE Routine 04/08/2025 10:43 AM EST Type 2 diabetes mellitus with other specified complication, unspecified whether intermediate project manager insulin use (HCC) from Last 3 Months Results * (ABNORMAL) Bacterial Vaginosis (04/23/2025 11:25 AM EST) TRICHOMONAS VAGINALIS DETECTION BY PCR NOT DETECTED Not Detect [facility] BACTERIAL VAGINOSIS DETECTION BY PCR NEGATIVE Negative [facility] Comment:The BV organism targ ets of the Xpert Xpress MVP test can becommensal in women; Xpert Xpress MVP positive results forbacterial vaginosis should be considered in conjunction withother clinical and patient information to determine thedisease status. Organisms that are not detected by the XpertXpress MVP test have also been reported to be associatedwith BV and aerobic vaginitis.The Xpert Xpress MVP test performance has not been evaluatedin patients under the age of 14. SELENA GROUP DETECTION BY PCR DETECTED(A) Not Detect [facility] Selena glab krusei PCR NOT DETECTED Not Detect [facility] 04/23/2025 11:2 5 AM EST 04/23/2025 1:52 PM EST Carolyn Aquino MD LAB MICROBIOLOGY - GENERAL ORDERABLES Final Result [facility] [address] [place] [phone] * POCT Urinalysis (04/23/2025 11:21 AM EST) [...] Media Lot # [id number] Lot# Expiration Date , Urine (Urine, Random) 04/23/2025 11:21 AM EST Carolyn Aquino MD POINT OF CARE ALCIDES T ENTER/EDIT ORDERABLES Final Result * (ABNORMAL) Urinalysis, Complete, with Reflex to Culture (04/23/2025 10:57 AM EST) Color Urine Yellow [facility] Appearance Urine Clear [facility] PH 5.0 5.0 - 9.0 [facility] Glucose Urine UA >=1000(A) Negative mg/dL [facility] Urine Blood Negative Negative [facility] Specific [place] - Urine >=1.030(H) 1.005 - 1.025 [facility] Urine Protein Trace Neg-Trace mg/dL [facility] Urine Ketones Trace Negative mg/dL [facility] Nitrite Urine Negative Negative [facility] Leukocyte Esterase Urine Negative Negative [facility] RBC Urine 0-2 0 - 2 /HPF [facility] Urine WBC 0-5 0 - 5 /HPF [facility] Urine Squamous Epithelial Cell 3-5 0 - 2 /HPF [facility] Urine Bacteria None Seen None Seen [facility] Hyaline Casts, Urine 0-2 0 - 2 /LPF [facility] Urine 04/23/2025 10:5 7 AM EST 04/23/2025 1:40 PM EST Narrative [facility] - 04/23/2025 2:14 PM EST Urine, Clean Catch us Carolyn Aquino MD LAB URINE ORDERAB LES Final Result Performing Organization Address City/[facility] Co de Phone Number [facility] [address] [place] [phone] * TSH W/Reflex to FT4 (04/13/2025 9:31 AM EST) TSH reflex Free T4 0.92 0.32 - 4.0 uIU/mL [facility] Blood Venous blood specimen / Unknown 04/13/2025 9:31 AM EST 04/13/2025 11:05 AM EST us Dede Humphrey NP LAB BLOOD ORDERABLES Final Resul t [facility] [address] [place] [address] [phone] * Hepatitis A,B,C Profile (04/13/2025 9:31 AM EST) Pathologist [facility] Hepatitis A IgM Nonreactive Nonreactive [facility] Comment:IgM antibodies to OMALLEY V not detected; does not exclude earlyacute or recovered HAV infection. ~Hepatitis B Surface Antibody NONREACTIVE Nonreactive [facility] Comment:Nonreactive: < 8.00 mIU/mL Hepatitis B Core Antibody Nonreactive Nonreactive [facility] Hepatitis C Antibody Nonreactive Nonreactive [facility] Comment:Antibodies to HCV no t detected; does not exclude early acuteHCV infection. Hepatitis B Surface Ag Negative Negative [facility] Blood Venous blood specimen / Unknown 04/13/2025 9:31 AM EST 04/13/2025 11:05 AM EST Dede Humphrey NP LAB BLOOD ORDERABLES Final Resul t Performing Organization Address [facility] de Phone Number [facility] [address] [place] [address] [phone] * (ABNORMAL) CBC auto differential (04/13/2025 9:31 AM EST) [facility] White Blood Count 7.3 4.8 - 10.8 X10*3/uL [facility] Red Blood Count 4.54 4.20 - 5.50 X10*6/uL [facility] Hemoglobin 13.9 12.0 - 16.0 g/dl [facility] Hematocrit 41.1 37.0 - 47.0 % [facility] Mean Corpuscular Volume 90.5 80.0 - 98.0 fL [facility] Mean Corpuscular Hemoglobin 30.6 27.0 - 33.0 pg [facility] Mean Corpuscular HGB Conc 33.8 31.0 - 35.0 g/dl [facility] Red Cell Distribution Width 11.7 11.0 - 16.0 % [facility] Platelet Count 205 160 - 400 X10*3/uL [facility] Mean Platelet Volume 13.0(H) 9.4 - 12.3 fL [facility] Neutrophils Percent Auto 60.8 45 - 73 % [facility] Imm Gran Pct Auto 0.4 0.0 - 0.4 % [facility] Lymphocytes Percent Auto 29.6 20 - 40 % [facility] Monocytes Percent Auto 7.0 2 - 11 % [facility] Eosinophils Percent Auto 1.5 0 - 4 % [facility] Basophils Percent Auto 0.7 0 - 2 % [facility] NRBC Pct Auto 0.0 0.0 - 0.2 /100WBC [facility] Neutrophils Absolute Auto 4.5 2.0 - 8.3 x10*3/uL [facility] Imm Gran Abs Auto 0.03 0.00 - 0.03 X10*3/uL [facility] Lymphocytes Absolute Auto 2.2 1.2 - 4.9 X10*3/uL [facility] Monocytes Absolute Auto 0.5 0.1 - 1.2 X10*3/uL [facility] Eosinophils Absolute Auto 0.1 0.0 - 0.4 X10*3/uL [facility] Basophils Absolute Auto 0.1 0.0 - 0.2 X10*3/uL [facility] NRBC Abs Auto 0.000 0.0 - 0.012 X10*3/uL [facility] Blood Venous blood specimen / Unknown 04/13/2025 9:31 AM EST 04/13/2025 11:05 AM EST us Dede Humphrey LENS COATING TECHNICIAN LAB BLOOD ORDERABLES Final Resul t [facility] [address] [place] [phone] [phone] * (ABNORMAL) Lipid Panel, Standard (04/13/2025 9:31 AM EST) Triglycerides 66 <150 mg/dL [facility] Comment:Desirable Triglyceri de: less than 150 mg/dLBorderline High Triglyceride 150-199 mg/dLHigh Triglyceride: 200-499 mg/dLVery High Triglyceride: greater than or equal to 5OO mg/dL Cholesterol 179 <200 mg/dL [facility] Comment:Desirable Cholestero l: less than 200 mg/dLBorderline High Cholesterol: 200-239 mg/dLHigh Cholesterol: greater than 239 mg/dL LDL Cholesterol Calculated 104(H) <100 mg/dL [facility] Comment:Desirable LDL: less than 100 mg/dLNear Optimal/Above Optimal LDL: 110- 129 mg/dLBorderline High LDL: 130-159 mg/dLHigh LDL: 160-189 mg/dLVery High LDL: greater than or equal to 190 mg/dL HDL Cholesterol 62 >40 mg/dL [facility] Comment:Desirable HDL: great er than 40 mg/dL Note: This HDL assay may give artificially low results in patients with liver disease. Blood Venous blood specimen / Unknown 04/13/2025 9:31 AM EST 04/13/2025 11:05 AM EST us Dede Humphrey LENS COATING TECHNICIAN LAB BLOOD ORDERABLES Final Resul t [facility] [address] [place] [phone] * (ABNORMAL) Comprehensive Metabolic Panel (04/13/2025 9:31 AM EST) Sodium 140 135 - 145 mmol/L [facility] Potassium 4.0 3.3 - 5.1 mmol/L [facility] Comment:Slight Hemolysis.Int erpret result with caution. Chloride 106 96 - 108 mmol/L [facility] Carbon Dioxide 28 22 - 29 mmol/L [facility] Anion Gap 10(L) 12 - 20 [facility] Urea Nitrogen (BUN) 13 9 - 16 mg/dL [facility] Creatinine, Serum 0.51 0.5 - 1.4 mg/dL [facility] Estimated Glomerular Filt Rate >60 [facility] Comment:Chronic Kidney Disea se: Estimated GFR < 60 mL/min/1.05s4Xzhrsp Kidney Disease: Estimated GFR < 15 mL/min/1.73m2 Glucose 149(H) 60 - 115 mg/dL [facility] Calcium 9.3 8.4 - 10.2 mg/dL [facility] Bilirubin, Total 0.5 0.0 - 1.0 mg/dL [facility] Aspartate Amino Transferase 21 5 - 31 U/L [facility] Comment:Slight Hemolysis.Int erpret result with caution. Alanine Aminotransferase 12 0 - 31 U/L [facility] Total Protein 6.8 6.5 - 8.0 g/dL [facility] Albumin Level 4.3 3.5 - 5.0 g/dL [facility] Alkaline Phosphatase 67 39 - 117 U/L [facility] Blood Venous blood specimen / Unknown 04/13/2025 9:31 AM EST 04/13/2025 11:05 AM EST us Dede Humphrey LENS COATING TECHNICIAN LAB BLOOD ORDERABLES Final Resul t Performing Organization Address City/[facility]/ZIP Co de Phone Number [facility] [address] [place] [address] [phone] * (ABNORMAL) POCT glycosylated hemoglobin (Hgb A1c) (04/08/2025 10:43 AM EST) Hemoglobin A1C 8.8(A) 4.0 - 5.7 % [facility] Media Lot # [id number] [facility] Lot# Expiration Date [id number] [facility] Blood Capillary blood specimen / Unknown 04/08/2025 10:43 AM EST us Dragan Rios LENS COATING TECHNICIAN POINT OF CARE TEST ENTER/EDIT ORDERABLES Final Result [facility] * (ABNORMAL) POCT Glucose (04/08/2025 10:43 AM EST) Glucose Blood, POC 272(A) 60 - 200 mg/dL [facility] Media Lot # [id number] [facility] Lot# Expiration Date ,026 [facility] Blood Capillary blood specimen / Unknown 04/08/2025 10:43 AM EST Dragan Rios NP POINT OF CARE TEST ENTER/EDIT ORDERABLES Final Result [facility] from Last 3 Months Additional Health Concerns Active Problems Noted Date Diagnosed Date Help patients manage their type 2 diabetes 04/08 Patient has chronic kidney disease 04/08/2025 Weekly blood pressure task 04/08/2025 Weekly blood pressure task 04/14/2025 Patient has chronic kidney disease 04/14/2025 Insurance [employer] MEDICARE REPLACEMENT Care Teams Granite Installer Relationship Specialty Start Date End Date Dede Humphrey NP [address] [place] [phone] PCP - General Family Medicine 04/23/25
--- OUTSIDE RECORDS SUMMARY | 2025-04-23 20:54 | XMS_ITS | Encounter Summary ---
Author Organization [employer] Address [address] [facility] 7 [place] [address] Care Team Providers Care Progressive Assembler And Fitter Name Role Phone Dede Humphrey NP Primary Care Provider [phone] Encounter Details Date Type Department Care Team ([facility] st Contact Info) Description 04/23/2025 Orders Only [facility] [address] [place] [address] Carolyn Ojeda MD [address] [place] [address] Social History Tobacco Use Types Packs/Day Years [...] Description 05/06/2025 2:00 PM EST Office Visit [facility] [address] [place] [phone] Dragan Rios NP [address] [place] [address] 06/26/2025 2:00 PM EST Nutrition [facility] DIABETES/NUTRITION [address] [place] [phone] [place] [address] documented as of this encounter Goals Goal [...] has chronic kidney disease No Genesis Walker, TAMMY documented as of this encounter Procedures Procedure Name Priority Date/Time Associated Diagnosis Comments BACTERIAL VAGINOSIS PANEL Routine 04/23/2025 11:25 AM EST documented in this encounter Results * (ABNORMAL) Bacterial Vaginosis (04/23/2025 11:25 AM EST) TRICHOMONAS VAGINALIS DETECTION BY PCR NOT DETECTED Not Detect [facility] BACTERIAL VAGINOSIS DETECTION BY PCR NEGATIVE Negative [facility] Comment:The BV organism targ ets of [...] GROUP DETECTION BY PCR DETECTED(A) Not Detect [facility] Selena glab krusei PCR NOT DETECTED Not Detect [facility] 04/23/2025 11:2 5 AM EST 04/23/2025 1:52 PM EST Carolyn Aquino MD LAB MICROBIOLOGY - GENERAL ORDERABLES Final Result [facility] [address] [place] [address] [phone] documented in this encounter Visit Diagnoses Not on filedocumented in this encounter Additional Health Concerns Active Problems Noted Date Diagnosed Date Help patients manage their type 2 diabetes 04/08 Patient has chronic kidney disease 04/08/2025 Weekly blood pressure task 04/08/2025 Weekly blood pressure task 04/14/2025 Patient has chronic kidney disease 04/14/2025 Assessment Noted Time PHQ-9 Depression Total Score: 3 04/08/20 9:10 AM EST documented as of this encounter Care Teams Progressive Assembler And Fitter Relationship Specialty Start Date End Date Dede Humphrey NP [address] [place] [phone] PCP - General Family Medicine 04/23/25 documented as of this encounter
--- OUTSIDE RECORDS SUMMARY | 2025-04-23 20:54 | XMS_ITS | Encounter Summary ---
Author Organization [employer] Address [address] [facility] 7t [place] [address] Care Team Providers Care Wardrobe Coordinator Name Role Phone Unavailable Primary Care Provider Unavailabl e Encounter Details Date Type Department Care Team ([facility] Contact Info) Description 04/22/2025 Telephone [employer] [facility] [address] [place] [address] Dede Humphrey NP [address] [place] [address] Social History Tobacco Use Types Packs/Day Years [...] encounter Miscellaneous Notes * Telephone Encounter - Esperanza Dennis - 04/22/2025 3:11 PM EST [facility] [place] Mammogram order to be update to ICD 10 code Z12.31. Please advise! documented in this encounter Plan of Treatment Upcoming Encounters Date Type Department Care Team (Late st Contact Info) Description 05/06/2025 2:00 PM EST Office Visit [facility] [address] [place] [phone] Dragan Rios NP [address] [place] [phone] 06/26/2025 2:00 PM EST Nutrition [facility] DIABETES/NUTRITION [address] [place] [phone] [place] [address] documented as of this encounter Goals Goal [...] Weekly blood pressure task No Genesis Walker RN Patient has chronic kidney disease Care Plan Patient has chronic kidney disease Genesis Nieto RN documented as of this encounter Visit [...]
--- OUTSIDE RECORDS SUMMARY | 2025-04-23 20:54 | XMS_ITS | Encounter Summary ---
Author Organization [employer] Address [address] [facility] 7 [place] [address] Care Team Providers Care Event Manager Name Role Phone Dede Humphrey NP Primary Care Provider [phone] Reason for Visit * Reason Onset Date Comments Telephone Call 04/20/2025 Encounter Details Date Type Department Care Team ([facility] st Contact Info) Description 04/20/[address] [facility] MEDICINE [address] [place] [address] Dragan Riso NP [address] [place] [address] Telephone Call Social History Tobacco Use Types Packs/Day Years [...] encounter Miscellaneous Notes * Telephone Encounter - Munira Yung RN - 04/22/2025 3:16 PM EST Tc to pt via [employer] ID: [id number] to let them know per covering provider Hi I sent a message to inform Cheryl of the increase in her Lisinopril. I am uncertain why she is on Propanolol, I am waiting for records from previous PCP. We can discuss further regarding the beta beau. Thanks . Pt reports they're still taking the 20 mg lisinopril and is on 10 mg of Propanolol. Pt reports they do not want to start the 40 mg due to concerns it may lower their blood pressure too low. Instructional Writer discussed with pt their readings from their last blood pressure check are not within the goal limit and the reason their provider increased the dose to prevent their readings from becoming more elevated. Wrietr educate DTaP on signs and symptoms of hypotension. Pt advised at their upcoming visit the provider will discuss with pt about propanolol but are still waiting on documents from their past PCP. Pt avoidsalty, process foods, smoking and drinking alcohol. Pt advised to exercise and focus on following alow sodium diet. Pt reports they will supervisor opening and picking their medication then start tomorrow. Pt also reportsthey have been experiencing pain and burning sensation for the past two weeks. Pt is requesting a urine test. Pt advised to come into [facility] today to be evaluated first before it can be ordered. Pt thendeclined then underwriter offered a sick on site tomorrow with Dr. Uvaldo Aquino at the [place] team, whichpt agreed to. Message sent to [facility] provide ion an FYI. * Telephone Encounter - Mallika Miles - 04/20/2025 10:08 AM EST Patient was seen as New Patient on 04/08/25. Patient walked in stating she did not receive a call to be informed that her medication Lisinopril would be switched from 20mg to 40mg. Also the Propanolol 10mg was discontinued also was not informed. Patient is requesting to speak with team nurse to discuss. Call back number is [phone]. documented in this encounter Plan of Treatment Upcoming Encounters Date Type Department Care Team (Late st Contact Info) Description 05/06/2025 2:00 PM EST Office Visit [facility] MEDICINE [address] [place] [phone] Dragan Rios NP [address] [place] [phone] 06/26/2025 2:00 PM EST Nutrition [facility] DIABETES/NUTRITION [address] [place] [phone] Chio Botello, RD [address] [place] [address] documented as of this encounter Goals Goal [...] has chronic kidney disease No Genesis Walker, RN documented as of this encounter Visit [...] documented as of this encounter Care Teams Event Manager Relationship Specialty Start Date End Date Dede Humphrey NP [address] [place] [phone] PCP - General Family Medicine 04/23/25 documented as of this encounter
--- OUTSIDE RECORDS SUMMARY | 2025-04-23 20:54 | XMS_ITS | Encounter Summary ---
Author Organization [employer] Address [address] [facility] 7 [place] [address] Care Team Providers Care Hand Weaver Name Role Phone Unavailable Primary Care Provider Unavailabl e Reason for Visit * Reason Onset Date Comments Blood Glucose Check 04/15/2025 Encounter Details Date Type Department Care Team ([facility] st Contact Info) Description 04/15/2025 Telephone [facility] MEDICINE [address] [place] [address] Dragan Rios NP [address] [place] [address] Blood Glucose Check Social History Tobacco Use Types Packs/Day Years [...] Encounter - Munira Yung RN - 04/22/2025 4:05 PM EST Incoming message from covering provider Fabricio Elias, The BG in the 300 range, are these fasting? Kindly clarify with Cheryl and Also kindly ask her if she is snacking at night and if so, the readings of the blood glucose in the mornings, fasting preferably. Thanks . Tc to pt via [employer] ID: [id number] reports they do eat junk food at night but when checking their blood sugar they're fasting. Assembly Hand reviewed the importance to follow a dm diet and avoid eating junk food. Message sent to covering provider for review. * Telephone Encounter - Jada Raphael RN - 04/15/2025 11:53 AM EST TC x 2 placed to pt via BLS service unit operator (Kasia ID#[id number]) to assess BG control with the new changes in insulin regimen and obtain BG readings. Pt reports their blood sugar is up and down. Pt reportsblood sugar today is 209 and yesterday was 159. Pt reports blood sugars over the last week have varied. Pt reports they have been 156, 158, 160, 300, 315. Pt denies episodes of hypoglycemia. Pt report s they got their sensors yesterday. Pt denies increased thirst, frequent urination, fatigue. Pt endorses blurred vision but this is not new for them and they are awaiting appointment with vision. Pt requesting provide review lab results. Advised pt message to be sent to provider for review. Pt verbalized understanding and denies questions at this time. Message forwarded to provider for review. ----- Message from Dragan Rios sent at 04/08/2025 12:36 PM EST ----- Hi there, Please contact the Cheryl in 1 week to assess her BG control with the new changes of her insulin regimen. Assess for episodes of hypo/hyperglycemia along with the readings. Kelsey Shaikh documented in this encounter Plan of Treatment Upcoming Encounters Date Type Department Care Team (Late st Contact Info) Description 05/06/2025 2:00 PM EST Office Visit [facility] MEDICINE [address] [place] [phone] Dragan Rios NP [address] [place] [phone] 06/26/2025 2:00 PM EST Nutrition [facility] DIABETES/NUTRITION [address] [place] [address] [place] [address] documented as of this encounter Goals Goal [...] Care Plan Weekly blood pressure task No Denise, Genesis, RN Patient has chronic kidney disease Care [...]
--- OUTSIDE RECORDS SUMMARY | 2025-04-23 20:54 | XMS_ITS | Encounter Summary ---
Author Organization [email or web address] Address [address] [facility] [address] [place] [address] Care Team Providers Care Healthcare Educator Name Role Phone Dede Humphrey NP Primary Care Provider [phone] Encounter Details Date Type Department Care Team (Latest Contact Info) Description 04/23/2025 Travel Social History Tobacco Use Types Packs/Day [...] Description 05/06/2025 2:00 PM EST Office Visit [facility] MEDICINE [address] [place] [address] Dragan Rios NP [address] [place] [address] 06/26/2025 2:00 PM EST Nutrition [facility] DIABETES/NUTRITION [address] [place] [address] [place] [address] documented as of this encounter Goals Goal [...] Patient has chronic kidney disease No Genesis Walker RN documented as of this encounter Visit [...] documented as of this encounter Care Teams Healthcare Educator Relationship Specialty Start Date End Date Dede Humphrey NP [address] [place] [phone] PCP - General Family Medicine 04/23/25 documented as of this encounter
== END 2025-04-23 13:40 | disposition home or self-care (01) ==
LOC: HO.LNP 13:39
PROVIDERS: Visit Provider Student in an Organized Health Care Education/Training Program
DX: B96.89 Other specified bacterial agents as the cause of diseases classified elsewhere (principal); N76.0 Acute vaginitis
CPT/HCPCS: 81001; 81515